=== PATIENT | female | born 2000 | race African-American/Black ===

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

== ENCOUNTER 2022-10-04 19:46 | Emergency (ER) | payer MEDICAID ==
[~2022-10-04] VITALS: Ht 167.6 cm; Wt 60.1 kg
[~2022-10-04 19:46] MED LIST changes: -CLOT21CR VG; +FERR325T23 PO; +IBUP-2028 PO
[2022-10-04 20:01] VITALS: BP 105/53
[2022-10-05 00:47] LABS: CLARITY URINE CLEAR (CLEAR); COLOR URINE YELLOW (YELLOW); KETONES URINE NEGATIVE (NEGATIVE); LEUKOCYTE ESTERASE URINE 1+ (NEGATIVE); NITRITE URINE NEGATIVE (NEGATIVE); OCCULT BLOOD URINE NEGATIVE (NEGATIVE); PROTEIN URINE NEGATIVE (NEGATIVE); SPECIFIC GRAVITY URINE 1.017 (1.005-1.030)
[2022-10-05] MEDS ORDERED: AZITHROMYCIN 500 MG TABLET PO ONE (02:15)
[2022-10-05] MEDS ORDERED: CEFTRIAXONE SODIUM 500 MG/VIAL IM ONE (02:15)
[2022-10-07 05:11] LABS: NEISSERIA GONORRHOEAE NAA Negative (Negative)
== END 2022-10-05 03:47 | disposition home or self-care (01) ==
LOC: ER 19:46
DX: N76.0 Acute vaginitis (principal)
CPT/HCPCS: 81003; 81025; 87210; 87491; 87591; 96372; 99284; J0696; Z7610